=== PATIENT | female | born 1985 | race Caucasian/White ===

== ENCOUNTER 2017-11-14 17:02 | Outpatient (CLI) | payer BC ==
[~2017-11-14] VITALS: Ht 157.5 cm; Wt 80.0 kg
[~2017-11-14 17:02] MED LIST: HEMOCYTE324 MG PO; IBUPROFEN800 MG PO; PRENATAL TABLE1 EAC3 PO; ZANTAC150 MG PO
[2017-11-14 17:19] VITALS: BP 129/87
[2017-11-14 17:31] VITALS: BP 126/92
[2017-11-14 17:50] VITALS: BP 123/84
[2017-11-14 18:11] LABS: ALBUMIN 3.1 G/DL (3.2-4.8); BASOPHIL (%) 0.3 % (0-1); CHLORIDE 109 MEQ/L (99-109); EOSINOPHIL (%) 0.6 % (0-5); HEMATOCRIT 29.1 % (36.0-46.0); HEMOGLOBIN 9.4 G/DL (11.9-15.5); IMMATURE GRANULOCYTE (%) 0.3 % (0.0-0.7); LYMPHOCYTE (%) 18.7 % (15-42); LYMPHOCYTE COUNT 1.3 K/uL (1.0-2.8); MCH 26.6 PG (29.0-34.0); MCHC 32.3 G/DL (30.0-36.0); MCV 82.2 FL (83-99); MONOCYTE (%) 6.9 % (3-12); MONOCYTE COUNT 0.5 K/uL (0-0.8); NEUTROPHIL (%) 73.2 % (45-76); PLATELET COUNT 253 K/uL (156-360); POTASSIUM 3.9 MEQ/L (3.7-5.4); RBC DIS.WIDTH-CV 13.7 % (11.8-14.6); RBC DIS.WIDTH-SD 40.9 % (39-53); RED BLOOD COUNT 3.54 M/uL (3.80-5.20); SODIUM 138 MEQ/L (136-147); TOTAL BILIRUBIN 0.3 MG/DL (0.0-1.0); WHITE BLOOD COUNT 6.8 K/uL (4.1-10.2)
[2017-11-14 18:16] LABS: ALKALINE PHOSPHATASE 139 IU/L (3-129); ALT (GPT) 9 IU/L (3-49); AST (GOT) 13 IU/L (2-34); CREATININE 0.6 MG/DL (0.6-1.3); GFR ESTIMATE (CALCULATED) > 59 mL/min/; GLUCOSE 92 mg/dL (70-99); TOTAL PROTEIN 6.1 G/DL (6.4-8.3); UREA NITROGEN (BUN) 8 mg/dL (9-23); URIC ACID 4.2 mg/dL (3.1-9.2)
[2017-11-14 18:19] VITALS: BP 127/87
[2017-11-14 18:36] LABS: UR CREATININE CONCENTRATION 167.8 MG/DL
[2017-11-14 18:49] VITALS: BP 124/86
== END 2017-11-14 19:20 | disposition home or self-care (01) ==
LOC: LDRP-OP 17:02 → 2WEST 17:03 → LDRP-OP 01-04 08:41
PROVIDERS: Nurse Practitioner
DX: O12.13 Gestational proteinuria, third trimester (principal); Z3A.00 Weeks of gestation of pregnancy not specified
CPT/HCPCS: 59025; 80053; 82570; 84156; 84550; 85025; G0378

== ENCOUNTER 2017-11-16 16:49 | Inpatient (IN) | payer BC ==
[~2017-11-16] VITALS: Ht 157.5 cm; Wt 78.9 kg
[2017-11-16] VITALS (9 sets, daily range): BP systolic 132–141; BP diastolic 89–100
[2017-11-16 17:46] LABS: BASOPHIL (%) 0.3 % (0-1); EOSINOPHIL (%) 0.6 % (0-5); HEMATOCRIT 28.7 % (36.0-46.0); HEMOGLOBIN 9.2 G/DL (11.9-15.5); IMMATURE GRANULOCYTE (%) 0.3 % (0.0-0.7); LYMPHOCYTE COUNT 1.3 K/uL (1.0-2.8); MCH 26.3 PG (29.0-34.0); MCHC 32.1 G/DL (30.0-36.0); MONOCYTE (%) 6.8 % (3-12); MONOCYTE COUNT 0.4 K/uL (0-0.8); NEUTROPHIL COUNT 4.6 K/uL (1.8-6.4); PLATELET COUNT 240 K/uL (156-360); RBC DIS.WIDTH-CV 13.8 % (11.8-14.6); RBC DIS.WIDTH-SD 40.9 % (39-53); WHITE BLOOD COUNT 6.4 K/uL (4.1-10.2)
[2017-11-16 18:09] LABS: ALBUMIN 3.2 G/DL (3.2-4.8); ALKALINE PHOSPHATASE 139 IU/L (3-129); ALT (GPT) 10 IU/L (3-49); AST (GOT) 13 IU/L (2-34); CHLORIDE 106 MEQ/L (99-109); CREATININE 0.6 MG/DL (0.6-1.3); GFR ESTIMATE (CALCULATED) > 59 mL/min/; GLUCOSE 93 mg/dL (70-99); SODIUM 137 MEQ/L (136-147); TOTAL BILIRUBIN 0.3 MG/DL (0.0-1.0); TOTAL PROTEIN 6.3 G/DL (6.4-8.3); UREA NITROGEN (BUN) 10 mg/dL (9-23)
[2017-11-16 19:25] LABS: UR CREATININE CONCENTRATION 260.4 MG/DL
[2017-11-17] VITALS (30 sets, daily range): BP systolic 113–174; BP diastolic 70–133
[2017-11-17] MEDS ORDERED: MOTRIN800 MG PO (09:38)
[2017-11-18 07:04] LABS: BASOPHIL (%) 0.2 % (0-1); EOSINOPHIL (%) 0.6 % (0-5); EOSINOPHIL COUNT 0.1 K/uL (0-0.3); HEMATOCRIT 25.4 % (36.0-46.0); IMMATURE GRANULOCYTE (%) 0.5 % (0.0-0.7); LYMPHOCYTE (%) 24.1 % (15-42); LYMPHOCYTE COUNT 2.1 K/uL (1.0-2.8); MCH 26.1 PG (29.0-34.0); MCHC 31.5 G/DL (30.0-36.0); MCV 82.7 FL (83-99); MONOCYTE (%) 4.8 % (3-12); MONOCYTE COUNT 0.4 K/uL (0-0.8); NEUTROPHIL (%) 69.8 % (45-76); PLATELET COUNT 175 K/uL (156-360); RBC DIS.WIDTH-CV 14.1 % (11.8-14.6); RBC DIS.WIDTH-SD 41.8 % (39-53); RED BLOOD COUNT 3.07 M/uL (3.80-5.20); WHITE BLOOD COUNT 8.6 K/uL (4.1-10.2)
== END 2017-11-18 14:34 | disposition home or self-care (01) | DRG 775 ==
LOC: LDRP-OP 16:49 → 2WEST 16:51 → LDRP-OP 01-04 19:58
PROVIDERS: Advanced Practice Midwife; Nurse Practitioner
DX: O13.4 Gestational [pregnancy-induced] hypertension without significant proteinuria, complicating childbirth (principal); O69.81X0 Labor and delivery complicated by cord around neck, without compression, not applicable or unspecified; O99.02 Anemia complicating childbirth; D50.9 Iron deficiency anemia, unspecified; Z3A.37 37 weeks gestation of pregnancy; Z37.0 Single live birth
CPT/HCPCS: 80053; 82570; 84156; 85025; C1755; G0378; J3010; J7120